=== PATIENT | male | born 1985 | race Caucasian/White ===

== ENCOUNTER 2017-10-23 10:04 | Emergency (ER) | payer OTHER, SELFPAY ==
[2017-10-23] MEDS ORDERED: Ampicillin/Sulbactam 3 GM in Sodium Chloride 0.9% 100 ML IVPB SCH (12:00)
[2017-10-23] MEDS ORDERED: Morphine 4 MG/ML VIAL ONE (12:14)
== END 2017-10-23 13:18 | disposition home or self-care (01) ==
LOC: ERS 10:04
DX: J36 Peritonsillar abscess (principal); F17.210 Nicotine dependence, cigarettes, uncomplicated
CPT/HCPCS: 87081; 87430; 96365; 96375; J0295; J2270; J7050

== ENCOUNTER 2018-03-16 11:26 | Emergency (ER) | payer OTHER ==
[2018-03-16 12:02] LABS: Bilirubin Negative (Negative); Blood, Urine Large (Negative); Clarity TURBID (Clear); Glucose, Urine (Dipstick) Negative (Negative); Leukocyte Large (Negative); Nitrite Negative (Negative); Protein, Urine (Dipstick) 100 mg/dL (Neg-Trace); Specific Gravity, Urine 1.021 (1.002-1.036)
[2018-03-16 12:04] LABS: Bacteria/HPF Rare-Few HPF (None Seen); RBC/HPF GREATER THAN 50-TNTC HPF (0-3); Squamous Epithelial 0-3 HPF (0-3)
[2018-03-16 12:09] LABS: Pathc Cast-AUWi Flag 9.13 (0-2.49)
[2018-03-16 12:15] LABS: Hyaline Casts/LPF NONE SEEN LPF (0-3 Hyaline); Other Casts/LPF None Seen LPF (0-3 Hyaline)
[2018-03-16] MEDS ORDERED: cefTRIAXone\\ROCEPHIN 1 GM VIAL ONE (12:23)
[2018-03-16] MEDS ORDERED: Lidocaine 1% PF 5 ML VIAL ONE (12:23)
== END 2018-03-16 12:49 | disposition home or self-care (01) ==
LOC: ERS 11:26
DX: N30.01 Acute cystitis with hematuria (principal); F17.210 Nicotine dependence, cigarettes, uncomplicated
CPT/HCPCS: 81003; 81015; 87077; 87086; 87186; 96372; J0696; J2001

== ENCOUNTER 2019-09-27 18:40 | Emergency (ER) | payer OTHER | END 2019-09-27 19:27 | disposition home or self-care (01) | LOC: ERS 18:40 | DX: R06.7 Sneezing (principal); F17.210 Nicotine dependence, cigarettes, uncomplicated | CPT/HCPCS: 87804; 99281 ==

== ENCOUNTER 2020-03-09 22:17 | Emergency (ER) | payer OTHER ==
[2020-03-09] MEDS ORDERED: HYDROcodone/Acetaminophen 10/325 mg Tablet ONE (23:37)
--- NOTE | 2020-03-10 08:15 | RAD ---
LEFT WRIST GREATER THAN OR EQUAL TO 2 VIEW STANDARD: HISTORY: Pain. COMPARISON: None. FINDINGS: No displaced left-sided rib fracture. IMPRESSION: No acute displaced rib fracture. POS: HOME
--- NOTE | 2020-03-10 08:15 | RAD ---
CHEST 1 VIEW: HISTORY: Right upper quadrant pain. Back pain. COMPARISON: None. FINDINGS: The lungs are clear. No pneumothorax. No effusion. Cardiac silhouette and mediastinal contours are within normal limits. No acute osseous abnormality. IMPRESSION: No acute intrathoracic abnormality. POS: HOME
== END 2020-03-10 00:37 | disposition home or self-care (01) ==
LOC: ERS 22:17
DX: R07.89 Other chest pain (principal); F17.210 Nicotine dependence, cigarettes, uncomplicated
CPT/HCPCS: 71045; 93005

== ENCOUNTER 2020-12-07 17:05 | Emergency (ER) | payer OTHER ==
--- NOTE | 2020-12-07 18:32 | RAD ---
RIGHT HAND THREE VIEWS: History: Hand pain and swelling. FINDINGS: There is a subtle area of lucency through the distal aspect of the fourth metacarpal near the metacar pal neck region. This is suspicious for a subtle nondisplaced fracture. No other abnormalities. IMPRESSION: Suggestion of possible nondisplaced fracture of the fourth metacarpal neck region. Clinical correlati on recommended. POS: [facility]
== END 2020-12-07 17:53 | disposition home or self-care (01) ==
LOC: ERS 17:05
DX: S62.364A Nondisplaced fracture of neck of fourth metacarpal bone, right hand, initial encounter for closed fracture (principal); F17.210 Nicotine dependence, cigarettes, uncomplicated; W01.0XXA Fall on same level from slipping, tripping and stumbling without subsequent striking against object, initial encounter
CPT/HCPCS: 26600

== ENCOUNTER 2022-08-10 22:49 | Emergency (ER) | payer OTHER | END 2022-08-10 23:39 | disposition home or self-care (01) | LOC: ERS 22:49 | DX: N20.0 Calculus of kidney (principal); R31.9 Hematuria, unspecified; F17.210 Nicotine dependence, cigarettes, uncomplicated | CPT/HCPCS: 99283 ==

== ENCOUNTER 2023-03-29 15:44 | Emergency (ER) | payer OTHER | END 2023-03-29 21:38 | disposition home or self-care (01) | LOC: ERS 15:44 | DX: S20.212A Contusion of left front wall of thorax, initial encounter (principal); F17.210 Nicotine dependence, cigarettes, uncomplicated; Y93.72 Activity, wrestling ==

== ENCOUNTER 2023-05-18 21:18 | Emergency (ER) | payer OTHER ==
[~2023-05-18 21:18] MED LIST: Iopamidol-370 76% 500 ML MDV (1 ML CHARGE) ONE
[2023-05-18] MEDS ORDERED: Ketorolac Tromethamine 30 MG/ML VIAL ONE (22:28)
[2023-05-18] MEDS ORDERED: Ondansetron PF 4 MG/2 ML Vial ONE (22:28)
[2023-05-18] MEDS ORDERED: Morphine 4 MG/ML VIAL ONE (22:28)
[2023-05-18 22:48] LABS: #Basophils 0.1 thou/uL (0.0-0.2); #Eosinphils 0.1 thou/uL (0.0-0.7); #Monocytes 0.6 thou/uL (0.11-0.59); #Neutrophils 5.3 thou/uL (1.40-6.50); %Basophils 0.7 % (0.0-1.0); %Eosinophils 1.3 % (0.0-10.0); %Lymphocytes 16.6 % (21.0-51.0); %Monocytes 7.9 % (0.0-10.0); %Neutrophils 73.2 % (42.0-75.0); Hemoglobin 14.3 g/dL (14.0-18.0); Mean Corpuscular HGB CONC 33.3 g/dL (32.0-36.0); Mean Corpuscular Hemoglobin 28.1 pg (27.0-31.0); Mean Corpuscular Volume 84.3 fl (78.0-98.0); Mean Platelet Volume 12.2 fL (7.4-10.4); Platelet Count 164 10x3/uL (130-400); RBC Distribution Width 13.2 % (11.5-14.5); Red Blood Cell (RBC) Count 5.09 mill/uL (4.70-6.10); White Blood Cell (WBC) Count 7.2 10x3/uL (4.8-10.8)
[2023-05-18 23:10] LABS: ALT (SGPT) 16 U/L (8-55); AST (SGOT) 27 U/L (5-34); Albumin 3.9 g/dL (3.5-5.0); Alkaline Phosphatase 76 U/L (40-110); Anion Gap 15 mmol/L (10-20); BUN (Urea Nitrogen) 11 mg/dL (8.9-20.6); Bilirubin, Total 0.2 mg/dL (0.2-1.2); CK (CPK) 83 U/L (30-200); Calc. Creatinine Clearance 0 mL/min (70-130); Calcium 9.1 mg/dL (7.8-10.44); Carbon Dioxide 23 mmol/L (22-29); Chloride 109 mmol/L (98-107); Estimated GFR 80; Globulin 2.5 g/dL (2.4-3.5); Glucose 94 mg/dL (70-105); Lipase 13 U/L (8-78); Potassium 4.6 mmol/L (3.5-5.1); Protein, Total 6.4 g/dL (6.0-8.3); Sodium 142 mmol/L (136-145)
[2023-05-19 00:04] LABS: Bacteria/HPF None Seen HPF (None Seen); Bilirubin Negative (Negative); Blood, Urine 3+ (Negative); CAUTI Indications for Culture Dysuria,urgency,freq; Clarity Turbid (Clear); Glucose, Urine (Dipstick) Normal (Negative); Ketone, Urine Negative (Negative); Leukocyte Negative Leu/uL (Negative); Nitrite Negative (Negative); Protein, Urine (Dipstick) 70 mg/dL (Neg-Trace); RBC/HPF Greater than 50 HPF (0-3); Squamous Epithelial 0-3 HPF (0-3); Urobilinogen Normal mg/dL (Less than 2); WBC/HPF 0-3 HPF (0-3)
[2023-05-19 00:06] LABS: Specific Gravity, Urine 1.058 (1.002-1.036); Urine Culture Reflex No No
== END 2023-05-19 00:22 | disposition home or self-care (01) ==
LOC: ERS 21:18
DX: N20.0 Calculus of kidney (principal); F17.210 Nicotine dependence, cigarettes, uncomplicated
CPT/HCPCS: 74177; 80053; 81001; 82550; 83690; 85025; 87086; 93005; 96361; 96374; 96375; J1885; J2270; J2405; Q9967

== ENCOUNTER 2023-05-22 14:54 | Emergency (ER) | payer OTHER ==
[2023-05-22] MEDS ORDERED: Ketorolac Tromethamine 30 MG/ML VIAL ONE (15:22)
[2023-05-22 15:45] LABS: #Basophils 0.1 thou/uL (0.0-0.2); #Eosinphils 0.1 thou/uL (0.0-0.7); #Monocytes 0.6 thou/uL (0.11-0.59); #Neutrophils 6.3 thou/uL (1.40-6.50); %Basophils 0.6 % (0.0-1.0); %Eosinophils 1.2 % (0.0-10.0); %Lymphocytes 13.5 % (21.0-51.0); %Monocytes 7.4 % (0.0-10.0); %Neutrophils 77.2 % (42.0-75.0); Hematocrit 39.9 % (42.0-52.0); Hemoglobin 13.2 g/dL (14.0-18.0); Mean Corpuscular HGB CONC 33.1 g/dL (32.0-36.0); Mean Corpuscular Hemoglobin 28.1 pg (27.0-31.0); Mean Corpuscular Volume 84.9 fl (78.0-98.0); Mean Platelet Volume 11.6 fL (7.4-10.4); Platelet Count 146 10x3/uL (130-400); RBC Distribution Width 13.1 % (11.5-14.5); White Blood Cell (WBC) Count 8.1 10x3/uL (4.8-10.8)
[2023-05-22 15:49] LABS: Bacteria/HPF None Seen HPF (None Seen); Bilirubin Negative (Negative); Blood, Urine 3+ (Negative); CAUTI Indications for Culture Pelvic or flank pain; Clarity Turbid (Clear); Glucose, Urine (Dipstick) Normal (Negative); Ketone, Urine Negative (Negative); Leukocyte Negative Leu/uL (Negative); Nitrite Negative (Negative); Protein, Urine (Dipstick) 20 mg/dL (Neg-Trace); RBC/HPF Greater than 50 HPF (0-3); Specific Gravity, Urine 1.023 (1.002-1.036); Squamous Epithelial 0-3 HPF (0-3); Urobilinogen Normal mg/dL (Less than 2); WBC/HPF 0-3 HPF (0-3)
[2023-05-22 15:52] LABS: Urine Culture Reflex No No
[2023-05-22 16:10] LABS: ALT (SGPT) 15 U/L (8-55); AST (SGOT) 17 U/L (5-34); Albumin 3.7 g/dL (3.5-5.0); Alkaline Phosphatase 76 U/L (40-110); Anion Gap 11 mmol/L (10-20); BUN (Urea Nitrogen) 15 mg/dL (8.9-20.6); Bilirubin, Total 0.3 mg/dL (0.2-1.2); Calc. Creatinine Clearance 0 mL/min (70-130); Calcium 8.6 mg/dL (7.8-10.44); Carbon Dioxide 28 mmol/L (22-29); Chloride 106 mmol/L (98-107); Estimated GFR 55; Glucose 96 mg/dL (70-105); Potassium 3.8 mmol/L (3.5-5.1); Protein, Total 5.7 g/dL (6.0-8.3); Sodium 141 mmol/L (136-145)
== END 2023-05-22 17:01 | disposition home or self-care (01) ==
LOC: ERS 14:54
DX: N20.0 Calculus of kidney (principal); F17.210 Nicotine dependence, cigarettes, uncomplicated
CPT/HCPCS: 80053; 81001; 85025; 99284; J1885

== ENCOUNTER 2023-06-12 03:49 | Emergency (ER) | payer OTHER ==
[2023-06-12 04:29] LABS: #Basophils 0.1 thou/uL (0.0-0.2); #Eosinphils 0.2 thou/uL (0.0-0.7); #Monocytes 0.6 thou/uL (0.11-0.59); #Neutrophils 4.4 thou/uL (1.40-6.50); %Basophils 0.7 % (0.0-1.0); %Eosinophils 2.4 % (0.0-10.0); %Lymphocytes 25.5 % (21.0-51.0); %Monocytes 7.9 % (0.0-10.0); %Neutrophils 63.4 % (42.0-75.0); Hemoglobin 13.2 g/dL (14.0-18.0); Mean Corpuscular Volume 84.9 fl (78.0-98.0); Mean Platelet Volume 11.6 fL (7.4-10.4); Platelet Count 144 10x3/uL (130-400); RBC Distribution Width 13.1 % (11.5-14.5); Red Blood Cell (RBC) Count 4.71 mill/uL (4.70-6.10)
[2023-06-12 04:52] LABS: ALT (SGPT) 8 U/L (8-55); AST (SGOT) 14 U/L (5-34); Albumin 3.8 g/dL (3.5-5.0); Alkaline Phosphatase 82 U/L (40-110); Anion Gap 11 mmol/L (10-20); BUN (Urea Nitrogen) 17 mg/dL (8.9-20.6); Bilirubin, Total 0.2 mg/dL (0.2-1.2); Calc. Creatinine Clearance 0 mL/min (70-130); Calcium 9.2 mg/dL (7.8-10.44); Carbon Dioxide 24 mmol/L (22-29); Chloride 109 mmol/L (98-107); Estimated GFR 78; Globulin 2.1 g/dL (2.4-3.5); Glucose 103 mg/dL (70-105); Potassium 3.6 mmol/L (3.5-5.1); Protein, Total 5.9 g/dL (6.0-8.3); Sodium 140 mmol/L (136-145)
[2023-06-12] MEDS ORDERED: Ketorolac Tromethamine 30 MG/ML VIAL ONE (05:25)
[2023-06-12] MEDS ORDERED: Ondansetron PF 4 MG/2 ML Vial ONE ×2 (05:25→13:30)
[2023-06-12 05:43] LABS: Bacteria/HPF None Seen HPF (None Seen); Bilirubin Negative (Negative); Blood, Urine 3+ (Negative); CAUTI Indications for Culture Dysuria,urgency,freq; Calcium Oxalate Crystals 1+ HPF (None Seen); Clarity Turbid (Clear); Glucose, Urine (Dipstick) Normal (Negative); Ketone, Urine Negative (Negative); Leukocyte 25 Leu/uL (Negative); Nitrite Negative (Negative); Protein, Urine (Dipstick) 50 mg/dL (Neg-Trace); RBC/HPF Greater than 50 HPF (0-3); Specific Gravity, Urine 1.025 (1.002-1.036); Squamous Epithelial 0-3 HPF (0-3); Urobilinogen Normal mg/dL (Less than 2)
[2023-06-12 05:45] LABS: Urine Culture Reflex No No
[2023-06-12] MEDS ORDERED: cefTRIAXone (ROCEPHIN) 2 GM VIAL ONE (06:44)
[2023-06-12] MEDS ORDERED: fentaNYL 50 mcg/mL 1 mL Vial ONE ×2 (12:33→13:22)
[2023-06-12] MEDS ORDERED: Iopamidol 45 ML ONE (13:05)
[2023-06-12] MEDS ORDERED: PROPOFOL 200 MG/20 ML VIAL ONE (13:30)
[2023-06-12] MEDS ORDERED: Dexamethasone 20 MG/5 ML VIAL ONE (13:30)
[2023-06-12] MEDS ORDERED: Glycopyrrolate 0.2 MG/ML 5 ML SYRINGE ONE (13:30)
[2023-06-12] MEDS ORDERED: HYDROcodone/Acetaminophen 5/325 mg Tablet ONE (15:19)
== END 2023-06-12 11:42 | disposition admitted as inpatient to this hospital (09) ==
LOC: ERS 03:49 → SDC 11:42
DX: N13.2 Hydronephrosis with renal and ureteral calculous obstruction (principal); F17.210 Nicotine dependence, cigarettes, uncomplicated
CPT/HCPCS: 36415; 74176; 74420; 80053; 81001; 85025; 87086; 96365; 96375; C2617; J0696; J1100; J1885; J2405; J2704; J3010; Q9967

== ENCOUNTER 2023-07-01 20:03 | Emergency (ER) | payer OTHER ==
[2023-07-01] MEDS ORDERED: Ketorolac Tromethamine 30 MG/ML VIAL ONE (20:57)
[2023-07-01] MEDS ORDERED: Dexamethasone 10 MG/ML VIAL ONE (22:35)
[2023-07-01] MEDS ORDERED: Benzocaine 20% Spray 60 ML CAN ONE (22:47)
[2023-07-01] MEDS ORDERED: Ampicillin/Sulbactam 3 GM in Sodium Chloride 0.9% 100 ML IVPB SCH (23:00)
[2023-07-01 23:02] LABS: #Eosinphils 0.1 thou/uL (0.0-0.7); #Neutrophils 10.8 thou/uL (1.40-6.50); %Basophils 0.2 % (0.0-1.0); %Eosinophils 0.5 % (0.0-10.0); %Lymphocytes 10.1 % (21.0-51.0); %Monocytes 7.8 % (0.0-10.0); %Neutrophils 81.2 % (42.0-75.0); Hematocrit 44.1 % (42.0-52.0); Hemoglobin 14.3 g/dL (14.0-18.0); Mean Corpuscular HGB CONC 32.4 g/dL (32.0-36.0); Mean Corpuscular Hemoglobin 27.8 pg (27.0-31.0); Mean Corpuscular Volume 85.8 fl (78.0-98.0); Mean Platelet Volume 11.7 fL (7.4-10.4); Platelet Count 152 10x3/uL (130-400); RBC Distribution Width 12.9 % (11.5-14.5); Red Blood Cell (RBC) Count 5.14 mill/uL (4.70-6.10); White Blood Cell (WBC) Count 13.3 10x3/uL (4.8-10.8)
[2023-07-01] MEDS ORDERED: Lidocaine 1% w/Epinephrine 1:100K 20 ML VIAL ONE (23:02)
[2023-07-01 23:24] LABS: ALT (SGPT) 10 U/L (8-55); AST (SGOT) 12 U/L (5-34); Albumin 3.6 g/dL (3.5-5.0); Alkaline Phosphatase 82 U/L (40-110); Anion Gap 13 mmol/L (10-20); BUN (Urea Nitrogen) 8 mg/dL (8.9-20.6); Bilirubin, Total 0.3 mg/dL (0.2-1.2); Calc. Creatinine Clearance 0 mL/min (70-130); Calcium 8.6 mg/dL (7.8-10.44); Carbon Dioxide 25 mmol/L (22-29); Chloride 103 mmol/L (98-107); Estimated GFR 101; Globulin 2.1 g/dL (2.4-3.5); Glucose 94 mg/dL (70-105); Potassium 4.8 mmol/L (3.5-5.1); Protein, Total 5.7 g/dL (6.0-8.3); Sodium 136 mmol/L (136-145)
== END 2023-07-01 23:34 | disposition home or self-care (01) ==
LOC: ERS 20:03
DX: J36 Peritonsillar abscess (principal); F17.210 Nicotine dependence, cigarettes, uncomplicated
CPT/HCPCS: 70491; 80053; 83605; 85025; 87081; 87430; 96365; 96375; J0295; J1100; J1885; J3490; Q9967

== ENCOUNTER 2023-11-27 02:05 | Emergency (ER) | payer OTHER, SELFPAY ==
[2023-11-27 04:57] LABS: #Basophils 0.1 thou/uL (0.0-0.2); #Eosinphils 0.1 thou/uL (0.0-0.7); #Monocytes 0.6 thou/uL (0.11-0.59); #Neutrophils 6.9 thou/uL (1.40-6.50); %Basophils 0.7 % (0.0-1.0); %Eosinophils 1.2 % (0.0-10.0); %Lymphocytes 14.5 % (21.0-51.0); %Monocytes 6.4 % (0.0-10.0); %Neutrophils 77.1 % (42.0-75.0); Hematocrit 40.4 % (42.0-52.0); Hemoglobin 12.8 g/dL (14.0-18.0); Mean Corpuscular HGB CONC 31.7 g/dL (32.0-36.0); Mean Corpuscular Hemoglobin 27.8 pg (27.0-31.0); Mean Corpuscular Volume 87.6 fl (78.0-98.0); Mean Platelet Volume 11.5 fL (7.4-10.4); Platelet Count 142 10x3/uL (130-400); RBC Distribution Width 13.6 % (11.5-14.5); Red Blood Cell (RBC) Count 4.61 mill/uL (4.70-6.10); White Blood Cell (WBC) Count 8.9 10x3/uL (4.8-10.8)
[2023-11-27 05:01] LABS: Bacteria/HPF None Seen HPF (None Seen); Bilirubin Negative (Negative); Blood, Urine 3+ (Negative); CAUTI Indications for Culture Pelvic or flank pain; Calcium Oxalate Crystals 2+ HPF (None Seen); Clarity Turbid (Clear); Glucose, Urine (Dipstick) Normal (Negative); Ketone, Urine Negative (Negative); Leukocyte 25 Leu/uL (Negative); Nitrite Negative (Negative); Protein, Urine (Dipstick) 100 mg/dL (Neg-Trace); RBC/HPF Greater than 50 HPF (0-3); Squamous Epithelial 0-3 HPF (0-3); Urobilinogen Normal mg/dL (Less than 2); Yeast-Budding 1+ HPF (None Seen); pH, Urine 5.5 (5.0-9.0)
[2023-11-27 05:02] LABS: Sperm/HPF Rare HPF (None Seen)
[2023-11-27 05:03] LABS: Urine Culture Reflex Yes Yes
[2023-11-27 05:17] LABS: ALT (SGPT) 8 U/L (8-55); AST (SGOT) 14 U/L (5-34); Albumin 3.7 g/dL (3.5-5.0); Alkaline Phosphatase 76 U/L (40-110); Anion Gap 8 mmol/L (10-20); BUN (Urea Nitrogen) 15 mg/dL (8.9-20.6); Bilirubin, Total 0.3 mg/dL (0.2-1.2); Calc. Creatinine Clearance 0 mL/min (70-130); Calcium 8.9 mg/dL (7.8-10.44); Carbon Dioxide 26 mmol/L (22-29); Chloride 111 mmol/L (98-107); Estimated GFR 91; Globulin 1.9 g/dL (2.4-3.5); Glucose 131 mg/dL (70-105); Potassium 3.8 mmol/L (3.5-5.1); Protein, Total 5.6 g/dL (6.0-8.3); Sodium 141 mmol/L (136-145)
[2023-11-27] MEDS ORDERED: Ondansetron ODT 4 MG TAB ONE (05:19)
[2023-11-27] MEDS ORDERED: Ketorolac Tromethamine 30 MG (1 mL) VIAL ONE (05:19)
== END 2023-11-27 07:30 | disposition home or self-care (01) ==
LOC: ERS 02:05
DX: N13.2 Hydronephrosis with renal and ureteral calculous obstruction (principal); R31.29 Other microscopic hematuria
CPT/HCPCS: 36415; 74176; 80053; 81001; 85025; 87086; 96372; J1885; Q0162